=== PATIENT | female | born 1950 | race Caucasian/White ===

== ENCOUNTER → 2017-06-25 | Outpatient (CLI) | payer MEDICARE, OTHER ==
[~2017-06-25] MED LIST: HCTZ 25MG TAB25 MG PO; LISINOPRIL20 MG PO; LORTAB 5/500 501 TAB PO; NEULASTA 66 MG/0.6 M SC; NO HOME MEDICATIONS; NORCO 325 MG-7.1 TAB PO; NORVASC2.5 MG PO; PHENERGAN 25 TA25 MG PO; XARELTO15 MG PO
== END ==
LOC: MC.RAD 08:40
DX: Z12.31 Encounter for screening mammogram for malignant neoplasm of breast (principal); C50.919 Malignant neoplasm of unspecified site of unspecified female breast

== ENCOUNTER → 2017-07-02 | Outpatient (REF) | LOC: WSOH 13:02 | DX: Z02.89 Encounter for other administrative examinations (principal) ==

== ENCOUNTER → 2017-07-27 | Outpatient (REF) | LOC: WSOH 10:04 | DX: Z02.89 Encounter for other administrative examinations (principal) ==

== ENCOUNTER → 2018-06-28 | Outpatient (CLI) | payer MEDICARE, OTHER | LOC: MC.RAD 08:16 | DX: Z12.31 Encounter for screening mammogram for malignant neoplasm of breast (principal); Z85.3 Personal history of malignant neoplasm of breast; Z90.11 Acquired absence of right breast and nipple ==

== ENCOUNTER → 2019-10-07 | Outpatient (CLI) | payer MEDICARE, OTHER ==
[2019-10-07 09:41] LABS: HEMATOCRIT 39.1 % (37.0-47.0); HEMOGLOBIN 13.1 g/dl (12.5-16.0); MEAN CELL VOLUME 93 fl (80.0-100.0); MEAN CORPUSCULAR HEMOGLOBIN 31 pg (27.0-31.0); MEAN CORPUSCULAR HGB CONC 34 g/dl (33.0-37.0); MEAN PLATELET VOLUME 10.6 fl (7.4-10.4); PLATELET COUNT 197 K/mm3 (130-400); RED BLOOD COUNT 4.22 M/mm3 (4.10-5.30); REDCELL DISTRIBUTION WIDTH-CV 12.9 % (11.5-14.5)
[2019-10-07 09:50] LABS: BILIRUBIN,TOTAL 1.1 mg/dL (0.0-1.0); CALCIUM 9.6 mg/dL (8.4-10.2); CREATININE, serum 0.89 (0.52-1.25); POTASSIUM 4.2 mmol/L (3.4-5.0); TOTAL PROTEIN 7.2 gm/dL (6.4-8.2)
[2019-10-07 10:25] LABS: BAND 4 % (0-10); BASOPHIL 1 % (0-2); EOSINOPHIL 3 % (0-4); LYMPHOCYTE 29 % (20.0-51.0); NEUTROPHILS 53 % (42.0-75.2); PLATELET ESTIMATE NORMAL (NORMAL)
== END ==
LOC: COL.LAB 09:12
PROVIDERS: Internal Medicine Medical Oncology
DX: C50.411 Malignant neoplasm of upper-outer quadrant of right female breast (principal)

== ENCOUNTER → 2020-06-06 | Outpatient (CLI) | payer MEDICARE, OTHER | LOC: MC.RAD 11:01 | DX: Z12.31 Encounter for screening mammogram for malignant neoplasm of breast (principal); Z98.890 Other specified postprocedural states; Z98.82 Breast implant status; Z92.3 Personal history of irradiation ==